=== PATIENT | female | born 1945 | race Caucasian/White ===

== ENCOUNTER → 2018-09-14 | Outpatient (CLI) | payer OTHER ==
[~2018-09-14] MED LIST: LEXAPRO 10 MG T10 M1 PO; XANAX 0.5 MG0.5 M1 PO
== END ==
LOC: CAT 14:07
DX: Z13.6 Encounter for screening for cardiovascular disorders (principal); E78.00 Pure hypercholesterolemia, unspecified; I25.10 Atherosclerotic heart disease of native coronary artery without angina pectoris